=== PATIENT | female | born 1995 | race Two or more races ===

== ENCOUNTER 2021-05-02 15:15 | Inpatient (IN) | payer MEDICAID, OTHER ==
[~2021-05-02] VITALS: Ht 160 cm; Wt 68.9 kg
[2021-05-02] MEDS ORDERED: MORPHINE SULFATE 4 MG/ML CPJ (NOT FOR IM USE) IV STA (16:43)
[2021-05-02] MEDS ORDERED: SODIUM CHLORIDE 0.9% 1,000 ML IV ONE ×2 (16:45→21:15)
[2021-05-02 17:01] LABS: HEMATOCRIT. 32.5 % (36.0-48.0); HEMOGLOBIN. 11.6 g/dL (12.0-16.0); MEAN CORPUSCULAR HEMOGLOBIN 34.7 pg (28.0-32.0); MEAN CORPUSCULAR VOLUME 97.6 fL (81.0-99.0); MEAN PLATELET VOLUME 8.2 fl (7.4-10.4); PLATELET 68 x1000/uL (130-400); RED BLOOD CELL COUNT 3.33 mill/uL (4.2-5.4); RED CELL DISTRIBUTION WIDTH 14.6 % (11.6-14.6)
[2021-05-02 17:04] LABS: CHLORIDE 101 mEq/L (98-107)
[2021-05-02 17:08] LABS: PROTHROMBIN TIME 10.7 sec (9.6-11.0)
[2021-05-02 17:48] LABS: PLATELET ESTIMATE DECREASED
[2021-05-02 18:55] LABS: CLARITY URINE CLOUDY (CLEAR); COLOR URINE YELLOW (YELLOW); KETONES URINE 1+ (NEGATIVE); LEUKOCYTE ESTERASE URINE 1+ (NEGATIVE); NITRITE URINE POSITIVE (NEGATIVE); OCCULT BLOOD URINE 2+ (NEGATIVE); PH URINE 6.5 (4.5-8.0); PROTEIN URINE 3+ (NEGATIVE); SPECIFIC GRAVITY URINE 1.021 (1.005-1.030)
[2021-05-02] MEDS ORDERED: CEFTRIAXONE 1 G PREMIX 50 ML IV ONE (19:30)
[2021-05-03] MEDS ORDERED: ONDANSETRON HCL 4MG/2ML INJ IV PRN (01:45)
[2021-05-03] MEDS: MORPHINE SULFATE 2 MG/ML CPJ (NOT FOR IM USE) IV PRN ×4 (01:47→23:29)
[2021-05-03 04:22] VITALS: BP 132/95
[2021-05-03] MEDS ORDERED: IBUP100T7 PO (05:54)
[2021-05-03 08:00] VITALS: BP 125/80
[2021-05-03] MEDS: PIPERACILLIN/TAZOBACTAM 3.375G in DEXT 5% WATER 50ML IV SCH ×3 (09:26→20:15)
[2021-05-03] MEDS: SODIUM CHLORIDE 0.9% 1,000 ML IV SCH ×2 (09:26→20:17)
[2021-05-03 10:00] VITALS: BP 130/82
[2021-05-03] MEDS ORDERED: POTASSIUM CHLORIDE INJ 40 MEQ in DEXT 5% WATER 250 ML IV NR (10:30)
[2021-05-03] MEDS: ACETAMINOPHEN 325MG TABLET PO PRN (19:02)
[2021-05-03 20:00] VITALS: BP 136/90
[2021-05-04] VITALS: BP 140/95
[2021-05-04] MEDS: KETOROLAC 30MG/ML VIAL IV PRN ×2 (00:27→20:19)
[2021-05-04] MEDS: PIPERACILLIN/TAZOBACTAM 3.375G in DEXT 5% WATER 50ML IV SCH ×3 (02:13→15:55)
[2021-05-04 04:00] VITALS: BP 119/83
[2021-05-04] MEDS: MORPHINE SULFATE 2 MG/ML CPJ (NOT FOR IM USE) IV PRN ×2 (04:39→08:34)
[2021-05-04] MEDS: SODIUM CHLORIDE 0.9% 1,000 ML IV SCH ×2 (06:31→20:07)
[2021-05-04 08:03] VITALS: BP 131/98
[2021-05-04 10:22] LABS: HEMATOCRIT. 31.1 % (36.0-48.0); HEMOGLOBIN. 11.2 g/dL (12.0-16.0); MEAN CORPUSCULAR HEMOGLOBIN 34.8 pg (28.0-32.0); MEAN CORPUSCULAR VOLUME 96.7 fL (81.0-99.0); MEAN PLATELET VOLUME 8.4 fl (7.4-10.4); PLATELET 65 x1000/uL (130-400); RED BLOOD CELL COUNT 3.22 mill/uL (4.2-5.4)
[2021-05-04 10:27] LABS: CHLORIDE 105 mEq/L (98-107)
[2021-05-04 14:44] LABS: PLATELET ESTIMATE DECREASED
[2021-05-04] MEDS ORDERED: POTASSIUM CHLORIDE 20MEQ TABLET SR PO NR (14:59)
[2021-05-04] MEDS: ACETAMINOPHEN 325MG TABLET PO PRN (16:22)
[2021-05-04 20:00] VITALS: BP 133/87
[2021-05-04] MEDS: CEFTRIAXONE 2 G in DEXTROSE 5% WATER 50 ML IV SCH (20:07)
[2021-05-05] VITALS: BP 129/87
[2021-05-05] MEDS: MORPHINE SULFATE 2 MG/ML CPJ (NOT FOR IM USE) IV PRN ×3 (00:04→21:22)
[2021-05-05] MEDS: ACETAMINOPHEN 325MG TABLET PO PRN ×2 (01:09→22:32)
[2021-05-05 04:00] VITALS: BP 122/81
[2021-05-05] MEDS: KETOROLAC 30MG/ML VIAL IV PRN ×2 (04:20→15:09)
[2021-05-05 06:35] LABS: HEMATOCRIT. 31.8 % (36.0-48.0); HEMOGLOBIN. 11.1 g/dL (12.0-16.0); MEAN CORPUSCULAR HEMOGLOBIN 34.4 pg (28.0-32.0); MEAN CORPUSCULAR VOLUME 97.9 fL (81.0-99.0); MEAN PLATELET VOLUME 8.5 fl (7.4-10.4); PLATELET 78 x1000/uL (130-400); RED BLOOD CELL COUNT 3.24 mill/uL (4.2-5.4); RED CELL DISTRIBUTION WIDTH 15.4 % (11.6-14.6)
[2021-05-05 07:00] LABS: CHLORIDE 106 mEq/L (98-107)
[2021-05-05 08:00] VITALS: BP 134/93
[2021-05-05] MEDS: SODIUM CHLORIDE 0.9% 1,000 ML IV SCH ×2 (08:30→21:03)
[2021-05-05] MEDS ORDERED: POTASSIUM CHLORIDE 20MEQ/PACKET PO NR (09:30)
[2021-05-05 12:00] VITALS: BP 142/98
[2021-05-05 12:53] LABS: PLATELET ESTIMATE DECREASED
[2021-05-05 16:00] VITALS: BP 146/102
[2021-05-05 20:00] VITALS: BP 139/92
[2021-05-05] MEDS: CEFTRIAXONE 2 G in DEXTROSE 5% WATER 50 ML IV SCH (21:02)
[2021-05-06] VITALS: BP 119/82
[2021-05-06 05:00] VITALS: BP 138/87
[2021-05-06] MEDS: ACETAMINOPHEN 325MG TABLET PO PRN (06:00)
[2021-05-06 06:23] LABS: HEMATOCRIT. 33.2 % (36.0-48.0); HEMOGLOBIN. 11.4 g/dL (12.0-16.0); MEAN CORPUSCULAR HEMOGLOBIN 33.6 pg (28.0-32.0); MEAN PLATELET VOLUME 8.3 fl (7.4-10.4); PLATELET 154 x1000/uL (130-400); RED BLOOD CELL COUNT 3.39 mill/uL (4.2-5.4); RED CELL DISTRIBUTION WIDTH 15.3 % (11.6-14.6)
[2021-05-06 06:35] LABS: CHLORIDE 105 mEq/L (98-107)
[2021-05-06 08:00] VITALS: BP 122/86
[2021-05-06] MEDS ORDERED: LIDOCAINE HCL 1% 20ML VIAL (Pyxis) INJ ONE (08:42)
[2021-05-06] MEDS: SODIUM CHLORIDE 0.9% 1,000 ML IV SCH (09:30)
[2021-05-06] MEDS ORDERED: POTASSIUM CHLORIDE 20MEQ TABLET SR PO NR (15:00)
[2021-05-06 17:28] LABS: PLATELET ESTIMATE NORMAL
[2021-05-06] MEDS ORDERED: CEFD300C3 MT (19:40)
[2021-05-06] MEDS: CEFTRIAXONE 2 G in DEXTROSE 5% WATER 50 ML IV SCH (19:51)
[2021-05-06 20:00] VITALS: BP 131/89
[2021-05-07] VITALS: BP 132/91
[2021-05-07 04:00] VITALS: BP 127/89
[2021-05-07 08:00] VITALS: BP 130/86
[2021-05-07 08:44] LABS: HEMATOCRIT. 31.1 % (36.0-48.0); HEMOGLOBIN. 10.9 g/dL (12.0-16.0); MEAN CORPUSCULAR HEMOGLOBIN 34.4 pg (28.0-32.0); MEAN CORPUSCULAR VOLUME 97.7 fL (81.0-99.0); MEAN PLATELET VOLUME 8.1 fl (7.4-10.4); PLATELET 305 x1000/uL (130-400); RED BLOOD CELL COUNT 3.18 mill/uL (4.2-5.4); RED CELL DISTRIBUTION WIDTH 15.2 % (11.6-14.6)
[2021-05-07 08:48] LABS: CHLORIDE 104 mEq/L (98-107)
[2021-05-07] MEDS ORDERED: POTASSIUM CHLORIDE 20MEQ TABLET SR PO SCH (10:30)
[2021-05-07] MEDS: SODIUM CHLORIDE 0.9% 1,000 ML IV SCH (11:04)
[2021-05-07 13:13] VITALS: BP 125/93
[2021-05-07] MEDS: ACETAMINOPHEN 325MG TABLET PO PRN (13:44)
[2021-05-07 18:31] LABS: PLATELET ESTIMATE NORMAL
[2021-05-08 04:11] LABS: HIV SCREEN 4G Non Reactive (Non Reactive)
== END 2021-05-07 13:52 | disposition home or self-care (01) | DRG 720 ==
LOC: ER 15:15 → ENRESERV 05-03 03:30 → 8WST 05-03 04:21
PROVIDERS: ADMIT Internal Medicine; ATTEND Internal Medicine
PROC: 02HV33Z Insertion of Infusion Device into Superior Vena Cava, Percutaneous Approach (ICD-10-PCS; principal; 2021-05-06)
PROC: B548ZZA Ultrasonography of Superior Vena Cava, Guidance (ICD-10-PCS; 2021-05-06)
DX: A41.9 Sepsis, unspecified organism (principal); E43 Unspecified severe protein-calorie malnutrition; E87.1 Hypo-osmolality and hyponatremia; N10 Acute pyelonephritis; K81.9 Cholecystitis, unspecified; R65.20 Severe sepsis without septic shock; E87.6 Hypokalemia; Z20.822 Contact with and (suspected) exposure to COVID-19; D64.9 Anemia, unspecified; B96.20 Unspecified Escherichia coli [E. coli] as the cause of diseases classified elsewhere; Z79.1 Long term (current) use of non-steroidal anti-inflammatories (NSAID); Z79.899 Other long term (current) drug therapy
CPT/HCPCS: 36415; 71045; 74177; 76700; 76937; 80048; 80053; 81003; 83605; 84145; 84484; 85025; 87077; 87186; 87389; 87426; 93005; 99285; C1725; J0696; J1885; J2270; J2405; J2543; J3480; J3490; J7030; J7060

== ENCOUNTER 2023-06-27 20:05 | Emergency (ER) | payer MEDICAID ==
[~2023-06-27] VITALS: Ht 167.6 cm; Wt 68.0 kg
[~2023-06-27 20:05] MED LIST: CEFD300C3 MT; IBUP100T7 PO
[2023-06-27 20:21] VITALS: O2SAT 96
[2023-06-27] MEDS ORDERED: SODIUM CHLORIDE 0.9% 1,000 ML IV ONE (21:15)
[2023-06-27] MEDS ORDERED: THIA50TA12 MT (22:27)
[2023-06-27] MEDS ORDERED: KEPP500 MT (22:27)
[2023-06-27] MEDS ORDERED: LEVETIRACETAM 500MG TABLET PO ONE (22:30)
[2023-06-27 22:59] LABS: BASOPHILS % 1.5 % (0.0-2.0); EOSINOPHILS % 0.3 % (0.0-5.0); HEMATOCRIT. 41.7 % (36.0-48.0); HEMOGLOBIN. 13.9 g/dL (12.0-16.0); LYMPHOCYTES % 11.3 % (20.0-50.0); MEAN CORPUSCULAR HEMOGLOBIN 32.9 pg (28.0-32.0); MEAN CORPUSCULAR HGB CONC 33.4 g/dL (31.0-37.0); MEAN CORPUSCULAR VOLUME 98.5 fL (81.0-99.0); MONOCYTES % 8.9 % (2.0-8.0); RED BLOOD CELL COUNT 4.23 mill/uL (4.2-5.4); RED CELL DISTRIBUTION WIDTH 19.3 % (11.6-14.6); WHITE BLOOD COUNT 7.6 x1000/uL (4.5-11.0)
[2023-06-27 23:07] LABS: CHLORIDE 87 mEq/L (98-107); INDEX HEMOLYSI 3 (1-3); INDEX ICTERIC 1 (1-4); INDEX LIPEMIC 1 (1-3); SODIUM 128 mEq/L (136-145)
[2023-06-27 23:11] LABS: ALANINE AMINOTRANSFERASE 76 IU/L (13-61); ALBUMIN 4.3 g/dL (3.4-5.0); ASPARTATE AMINOTRANSFERASE 128 IU/L (15-37); CALCIUM 9.7 mg/dL (8.5-10.1); CARBON DIOXIDE 33 mEq/L (21-32); CREATININE 0.9 mg/dL (0.6-1.3); ETHANOL BLOOD < 10 mg/dL (-10); GLUCOSE 125 mg/dL (70-105); UREA NITROGEN BLOOD 21 mg/dL (7-21)
[2023-06-27 23:13] LABS: BILIRUBIN TOTAL 1.2 mg/dL (0.1-1.0); PROTEIN TOTAL 8.5 g/dL (6.0-8.3)
[2023-06-27 23:15] LABS: DIFFERENTIAL COMMENT 1
[2023-06-27 23:18] LABS: POTASSIUM 2.8 mEq/L (3.5-5.1)
[2023-06-27] MEDS ORDERED: POTA-204 MT (23:26)
[2023-06-27 23:30] LABS: MEAN PLATELET VOLUME 8.8 fl (7.4-10.4); PLATELET 119 x1000/uL (130-400)
[2023-06-27] MEDS ORDERED: POTASSIUM CHLORIDE 20MEQ/PACKET PO NR (23:30)
[2023-06-27 23:56] LABS: HCG SCREEN NEGATIVE
[2023-06-28] VITALS: BP 128/89; PULSE 98; RESP 18; TEMP 98.4
== END 2023-06-28 00:04 | disposition home or self-care (01) ==
LOC: ER 22:28
DX: F10.239 Alcohol dependence with withdrawal, unspecified (principal); F10.229 Alcohol dependence with intoxication, unspecified; E87.6 Hypokalemia; F10.20 Alcohol dependence, uncomplicated; E86.0 Dehydration; Y90.9 Presence of alcohol in blood, level not specified
CPT/HCPCS: 80053; 80320; 82962; 84703; 85025; 36415; 93005; 96360; 99284; J7030; Z7610; G0480

== ENCOUNTER 2025-10-04 23:34 | Inpatient (IN) | payer MEDICAID ==
[~2025-10-04] VITALS: Ht 160 cm; Wt 66.2 kg
[~2025-10-04 23:34] MED LIST changes: +KEPP500 MT; +POTA-204 MT; +THIA50TA12 MT
[2025-10-04 23:46] VITALS: O2SAT 100
[2025-10-05] VITALS (10 sets, daily range): BP systolic 116–138; BP diastolic 86–102; PULSE 69–102; RESP 14–24; TEMP 36.4–36.8; O2SAT 97–100
[2025-10-05] MEDS: DIAZEPAM 5 MG/ML 2ML SYR IV ONE ×2 (00:18→01:57)
[2025-10-05] MEDS: LEVETIRACETAM 500MG PREMIX 100 ML IV ONE (00:19)
[2025-10-05 00:27] LABS: BASOPHILS % 3.0 % (0.0-2.0); EOSINOPHILS % 0.3 % (0.0-5.0); HEMATOCRIT. 40.7 % (36.0-48.0); HEMOGLOBIN. 13.6 g/dL (12.0-16.0); LYMPHOCYTES % 14.9 % (20.0-50.0); MEAN PLATELET VOLUME 6.7 fl (7.4-10.4); MONOCYTES % 10.0 % (2.0-8.0); NEUTROPHILS % 71.8 % (40.0-76.0); PLATELET 172 x1000/uL (130-400); RED BLOOD CELL COUNT 4.20 mill/uL (4.2-5.4); RED CELL DISTRIBUTION WIDTH 15.4 % (11.6-14.6)
[2025-10-05 00:39] LABS: ETHANOL BLOOD 24 mg/dL (<10)
[2025-10-05 00:41] LABS: ASPARTATE AMINOTRANSFERASE 93 IU/L (<34); BILIRUBIN DIRECT 0.3 mg/dL (<=3.0); BILIRUBIN TOTAL 1.2 mg/dL (0.1-1.0); PROTEIN TOTAL 7.8 g/dL (6.0-8.3)
[2025-10-05 00:44] LABS: HCG SCREEN NEGATIVE
[2025-10-05] MEDS: FOLIC ACID 1 MG, THIAMINE HCL 100 MG, MVI, ADULT NO.1 10 ML in DEXTROSE 5% WATER 1,000 ML IV ONE (00:45)
[2025-10-05] MEDS: MAGNESIUM 2 G PREMIX 50 ML IV ONE (01:21)
[2025-10-05 01:25] LABS: CREATININE 0.8 mg/dL (0.6-1.0); UREA NITROGEN BLOOD 8 mg/dL (9-23)
[2025-10-05] MEDS ORDERED: ONDANSETRON HCL 4MG/2ML INJ IV PRN (05:00)
[2025-10-05] MEDS: CHLORDIAZEPOXIDE 25MG CAPSULE PO SCH (05:45)
[2025-10-05] MEDS: NALTREXONE HCL 50MG TABLET PO SCH (09:18)
[2025-10-05] MEDS: PANTOPRAZOLE 40MG DR TABLET PO SCH (09:18)
[2025-10-05] MEDS: LEVETIRACETAM 500MG TABLET PO SCH (09:18)
[2025-10-05] MEDS: LORAZEPAM 2MG/ML UD SYRINGE IV PRN (11:35)
[2025-10-05] MEDS: FOLIC ACID 1 MG, THIAMINE HCL 100 MG, MVI, ADULT NO.1 10 ML in SODIUM CHLORIDE 0.9% 1,0... IV SCH (11:39)
[2025-10-05 14:09] LABS: *AMPHETAMINES SCREEN URINE NEGATIVE (NEGATIVE)
[2025-10-05 14:10] LABS: *BARBITURATES SCREEN URINE NEGATIVE (NEGATIVE); *BENZODIAZEPINES SCREEN URINE PRESUMPTIVE POSITIVE (NEGATIVE); *COCAINE SCREEN URINE NEGATIVE (NEGATIVE); CANNABINOID URINE SCREEN NEGATIVE (NEGATIVE); ECSTASY MDMA SCREEN URINE NEGATIVE (NEGATIVE); METHADONE URINE SCREEN NEGATIVE (NEGATIVE); OPIATES URINE SCREEN NEGATIVE (NEGATIVE); PHENCYCLIDINE URINE SCREEN NEGATIVE (NEGATIVE)
[2025-10-05 17:06] LABS: HEPATITIS C AB NON REACTIVE (Neg) (Negative)
[2025-10-06] VITALS (12 sets, daily range): BP systolic 111–139; BP diastolic 79–107; PULSE 64–106; RESP 13–25; TEMP 36.1–36.8; O2SAT 96–100
[2025-10-06] MEDS: PANTOPRAZOLE 40MG DR TABLET PO SCH (06:36)
[2025-10-06 07:21] LABS: CREATININE 0.8 mg/dL (0.6-1.0)
[2025-10-06 07:22] LABS: UREA NITROGEN BLOOD 6 mg/dL (9-23)
[2025-10-07] VITALS (8 sets, daily range): BP systolic 100–136; BP diastolic 27–111; PULSE 67–111; RESP 16–31; TEMP 36.4–37.3; O2SAT 97–99
== END 2025-10-07 14:42 | disposition left against medical advice (07) | DRG 770 ==
LOC: ER 23:39 → 5EST 10-05 01:26 → EDBEDREQ 10-05 01:40 → EDBEDREQTM 10-05 01:40 → ENRESERV 10-05 02:05
PROVIDERS: ADMIT Internal Medicine; ATTEND Internal Medicine
DX: F10.229 Alcohol dependence with intoxication, unspecified (principal); F10.231 Alcohol dependence with withdrawal delirium; D72.819 Decreased white blood cell count, unspecified; E66.9 Obesity, unspecified; F41.9 Anxiety disorder, unspecified; R51.9 Headache, unspecified; R44.1 Visual hallucinations; Z68.25 Body mass index [BMI] 25.0-25.9, adult; Z79.899 Other long term (current) drug therapy
CPT/HCPCS: 36415; 80048; 80076; 80305; 80320; 83735; 84703; 85025; 86705; 87340; 93005; 99285; A4606; J1953; J2060; J3411; J3475; J3490; J7030; J7070; G0480